=== PATIENT | female | born 1960 | race Caucasian/White ===

== ENCOUNTER 2019-03-11 12:10 | Emergency (ER) | payer MEDICAID, OTHER ==
[2019-03-11 12:16] VITALS: BP 160/94; PULSE 88; RESP 18; TEMP 98.1; O2SAT 100
[2019-03-11] MEDS ORDERED: Naproxen 550 mg Tab PO STA (13:07)
[2019-03-11] MEDS ORDERED: Naproxen 550 mg Tab PO ONE (13:15)
--- NOTE | 2019-03-11 13:18 | C.PDOC ---
History Of Present Illness Patient is a 58 year old female who presents to the ED c/o right knee and lower back pain for 5-6 years. Patient states she was seen by PMD in past and has had X-rays that showed degenerative changes in 2017. She states she was given nsaids in past, but is no longer taking any at this point. She states the pain getting worse and rates it as a 7/10. She denies any trauma, injury, weakness, numbness, tingling, or hx of sciatica. Chief Complaint (Nursing): Lower Extremity Problem/Injury History Per: Patient History/Exam Limitations: no limitations Onset/Duration Of Symptoms: Other (5 to 6 years) Current Symptoms Are (Timing): Still Present Pain Scale Rating Of: 7 Recent travel outside of the [place]: No Additional History Per: Patient Past Medical History Reviewed: Historical Data, Nursing Documentation, Vital Signs Vital Signs: Last Vital Signs Temp 98.1 F 03/11/19 12:13 Pulse 88 03/11/19 12:13 Resp 18 03/11/19 12:13 BP 160/94 H 03/11/19 12:13 Pulse Ox 100 03/11/19 12:13 Primary Care Provider: Non H Provider, - Medical History PMH: Arthritis, Depression, Rheumatoid Arthritis Denies: Chronic Kidney Disease Surgical History: No Surg Hx Family History: States: No Known Family Hx - Social History Hx Tobacco Use: Yes (occasional) Hx Alcohol Use: Yes Hx Substance Use: No - Immunization History Hx Tetanus Toxoid Vaccination: No Hx Influenza Vaccination: No Hx Pneumococcal Vaccination: No Review Of Systems Constitutional: Negative for: Fever Cardiovascular: Negative for: Chest Pain Respiratory: Negative for: Shortness of Breath Gastrointestinal: Negative for: Nausea, Vomiting Genitourinary: Negative for: Incontinence Musculoskeletal: Positive for: Back Pain (lower back pain ), Leg Pain (right knee pain). Negative for: Neck Pain Skin: Negative for: Rash, Bruising Neurological: Negative for: Weakness, Numbness, Dizziness Physical Exam - Physical Exam Appears: Non-toxic, No Acute Distress Skin: Normal Color, Warm, Dry Head: Atraumatic, Normacephalic Eye(s): bilateral: Normal Inspection Chest: Symmetrical, No Deformity Cardiovascular: Rhythm Regular, No Murmur Respiratory: Normal Breath Sounds, No Accessory Muscle Use Gastrointestinal/Abdominal: Soft, No Tenderness Back: No CVA Tenderness, Other (tendernss to lumbar spine) Extremity: Tenderness (to right knee), No Pedal Edema, No Calf Tenderness, Capillary Refill (less than 2 seconds), No Deformity, No Swelling, No Other (e cchymosis or erythema) Extremity: Bilateral: Atraumatic, Normal ROM Neurological/Psych: Oriented x3, Normal Speech, Normal Cognition, Normal Motor, Normal Sensation Gait: Steady ED Course And Treatment O2 Sat by Pulse Oximetry: 100 (on RA) Pulse Ox Interpretation: Normal Medical Decision Making Medical Decision Making: Plan: Flexeril 5mg PO and Anaprox 550mg PO given Patient reassessed and pain has improved patient advised to continue meds as prescribed follow up with recommendations made by previous PMD to see [employer] or Ortho Rest, Ice, compression, and elevation Return to the ED if symptoms worsen Patient verbalizes understanding and is in agreement with plan. Patient is stable for discharge. Disposition Counseled Patient/Family Regarding: Diagnosis, Need For Followup, Rx Given - Disposition Referrals: [facility] [Outside] [facility] at [Outside] Disposition: HOME/ ROUTINE Disposition Time: 13:42 Condition: STABLE Additional Instructions: continue meds as prescribed follow up with recommendations made by previous PMD to see [employer] or Ortho Rest, Ice, compression, and elevation Return to the ED if symptoms worsen Prescriptions: Cyclobenzaprine [Flexeril] 10 mg PO TID PRN #15 tab PRN Reason: Muscle Spasm Naproxen [Naprosyn] 500 mg PO BID #30 tablet Instructions: Low Back Pain (DC), Sciatica (DC), Knee Pain (DC) Forms: [employer] ([place]wana) - Clinical Impression Clinical Impression: Joint pain, Knee pain, Back pain - PA / DIRECT CARE SPECIALIST / Resident Statement MD/DO has examined the patient and agrees with the treatment plan. - Scribe Statement The provider has reviewed the documentation as recorded by the Angel Grimm All medical record entries made by the Angel were at my direction and personally dictated by me. I have reviewed the chart and agree that the record accurately reflects my personal performance of the history, physical exam, medical decision making, and the department course for this patient. I have also personally directed, reviewed, and agree with the discharge instructions and disposition.
== END 2019-03-11 13:53 | disposition home or self-care (01) ==
LOC: C.ER 12:10
DX: M25.561 Pain in right knee (principal); M54.5 Low back pain